=== PATIENT | male | born 1960 | race Hispanic/Latino ===

== ENCOUNTER 2019-03-04 09:56 | Emergency (ER) | payer BC ==
[2019-03-04 10:53] LABS: Protime INR 1.03
[2019-03-04 10:55] LABS: Absolute Lymphocytes (CBC) 2.6 K/uL (0.7-4.9); Basophils % 0.7 % (0-1.3); Hematocrit 43.3 % (39.6-49.0); Lymphocytes % 40.6 % (15.3-44.8); RBC Red Blood Cell Count 5.19 M/uL (4.33-5.43)
--- NOTE | 2019-03-04 11:00 | RAD REPORT ---
EXAM DESCRIPTION: CT - Head Brain Wo Cont - 03/04/2019 10:39 am CLINICAL HISTORY: Right-sided weakness, stroke-like symptoms COMPARISON: None. TECHNIQUE: Axial 5 mm thick images of the head were obtained without IV contrast. All CT scans are performed using dose optimization technique as appropriate and may include automated exposure control or mA/KV adjustment according to patient size. FINDINGS: No intracranial hemorrhage, mass, edema or shift of mid-line structures. No acute infarcti on changes seen. No significant atrophy or chronic ischemic change. Ventricles are normal. Arterial a nd physiologic calcifications are present. Mastoid air cells are clear. Maxillary sinus minimal mucosal thickening present. No acute bony findings. IMPRESSION: No acute intracranial finding. Mild maxillary sinus mucosal thickening.
[2019-03-04 11:13] LABS: ALT/SGPT 19 U/L (12-78); AST/SGOT 15 U/L (15-37); Albumin 4.3 g/dL (3.4-5.0); Alkaline Phosphatase 68 U/L (45-117); BUN Blood Urea Nitrogen 8 mg/dL (7-18); Bicarbonate 29 mmol/L (21-32); Bilirubin Direct 0.2 mg/dL (0-0.2); Bilirubin Total 1.1 mg/dL (0.2-1.0); Glucose Level 91 mg/dL (74-106); Magnesium 2.4 mg/dL (1.8-2.4); NT PRO-BNP 28 pg/mL (<125); Sodium Level 140 mmol/L (136-145); Troponin (Emerg Dept Use Only) < 0.02 ng/mL (0.0-0.045)
--- NOTE | 2019-03-04 11:28 | RAD REPORT ---
EXAM DESCRIPTION: Yesi Single View03/04/2019 10:54 am CLINICAL HISTORY: Chest pain COMPARISON: none FINDINGS: The lungs appear clear of acute infiltrate. The heart is normal size IMPRESSION: No acute abnormalities displayed
--- NOTE | 2019-03-04 11:40 | ER ---
Nurse's Notes [facility] Name: Romeo Chapin Age: 58 yrs Sex: Male : 1960 Arrival Date: 03/04/2019 Time: 10:02 Bed 23 Private MD: None, None Diagnosis: Tremor, unspecified Presentation: 03/04 10:05 Presenting complaint: Patient states: right side has been shaking X 2 weeks, getting iw worse, also having cramping on that side, his doctor was worried about a stroke. Transition of care: patient was not received from another setting of care. Onset of symptoms was February 20, 2019. Risk Assessment: Do you want to hurt yourself or someone else? Patient reports no desire to harm self or others. Initial Sepsis Screen: Does the patient meet any 2 criteria? No. Patient's initial sepsis screen is negative. Does the patient have a suspected source of infection? No. Patient's initial sepsis screen is negative. Care prior to arrival: None. 10:05 Method Of Arrival: Ambulatory iw 10:05 Acuity: LY 3 iw Historical: - Allergies: 10:06 No Known Allergies; iw - Home Meds: 10:06 None [Active]; iw - PMHx: 10:06 None; iw - PSHx: 10:06 eye; iw - Immunization history:: Adult Immunizations not up to date. - Social history:: Smoking status: Patient denies any tobacco usage or history of. - Ebola Screening: : Patient negative for fever greater than or equal to 101.5 degrees Fahrenheit, and additional compatible Ebola Virus Disease symptoms Patient denies exposure to infectious person Patient denies travel to an Ebola-affected area in the 21 days before illness onset No symptoms or risks identified at this time. Screenin:19 Abuse screen: Denies threats or abuse. Denies injuries from another. Nutritional ca1 screening: No deficits noted. Tuberculosis screening: No symptoms or risk factors identified. Fall Risk IV access (20 points). Assessment: 10:19 General: Appears in no apparent distress. comfortable, Behavior is calm, cooperative, ca1 appropriate for age, Reports shaking on the right side of the body, last week he feels numbness on the R side of mouth, sometimes, when his driving his right arm also feels numb. Shaking is more at rest than on purposeful movements and states, "I can control it most of the time but it just getting worse. Also, I kind of keep forgetting things". Pain: Denies pain. Neuro: Level of Consciousness is awake, alert, obeys commands, Oriented to person, place, time, situation, Appropriate for age Tool Crib Lead are equal bilaterally Moves all extremities. Gait is steady, Speech is normal, Facial symmetry appears normal, Pupils are PERRLA, Intact. Cardiovascular: Heart tones S1 S2 present Capillary refill < 3 seconds Patient's skin is warm and dry. Rhythm is sinus rhythm. Respiratory: Airway is patent Respiratory effort is even, unlabored, Respiratory pattern is regular, symmetrical, Breath sounds are clear bilaterally. GI: Abdomen is round non-distended, Bowel sounds present X 4 quads. Abd is soft and non tender X 4 quads. : No deficits noted. No signs and/or symptoms were reported regarding the genitourinary system. EENT: No signs and/or symptoms were reported regarding the EENT system. Derm: Skin is intact, is healthy with good turgor, Skin is pink, warm \\T\\ dry. Musculoskeletal: Circulation, motion, and sensation intact. Capillary refill < 3 seconds, Range of motion: intact in all extremities. 10:38 Reassessment: Pt to ct. ca1 11:08 Reassessment: Patient appears in no apparent distress at this time. Patient and/or ca1 family updated on plan of care and expected duration. Pain level reassessed. Patient is alert, oriented x 3, equal unlabored respirations, skin warm/dry/pink. 11:30 Reassessment: Patient appears in no apparent distress at this time. Patient is alert, ca1 oriented x 3, equal unlabored respirations, skin warm/dry/pink. Vital Signs: 10:06 BP 147 / 99; Pulse 68; Resp 16; Temp 97.8; Pulse Ox 98% on R/A; Weight 95.25 kg; Height iw 5 ft. 10 in. (177.80 cm); 11:08 BP 127 / 84; Pulse 65; Resp 15; Pulse Ox 99% on R/A; ca1 11:30 BP 133 / 97; Pulse 69; Resp 18 S; Pulse Ox 99% on R/A; ca1 10:06 Body Mass Index 30.13 (95.25 kg, 177.80 cm) iw ED Course: 10:02 Patient arrived in ED. mr 10:03 None, None is Private Physician. mr 10:06 Triage completed. iw 10:07 Blanka Cornejo, RN is Primary Nurse. ca1 10:16 Isacc Hernandez PA is PHCP. [facility] 10:16 Dangelo Grimm MD is Attending Physician. jmm 10:18 Arm band placed on. ca1 10:19 Patient has correct armband on for positive identification. Placed in gown. Bed in low ca1 position. Call light in reach. Side rails up X 1. phototypesetting equipment monitor on. Pulse ox on. NIBP on. Warm blanket given. 10:19 No provider procedures requiring assistance completed. ca1 10:35 Initial lab(s) drawn, by me, sent to lab. Inserted saline lock: 20 gauge in right ca1 antecubital area, using aseptic technique. Blood collected. 10:38 CT Head Brain wo Cont In Process Unspecified. EDMS 10:55 Chest Single View In Process Unspecified. EDMS 11:39 Marlon Temple MD is Referral Physician. jmm 11:40 IV discontinued, intact, bleeding controlled, No redness/swelling at site. Pressure ca1 dressing applied. Administered Medications: No medications were administered Outcome: 11:39 Discharge ordered by MD. jmm 11:40 Discharged to home ambulatory. ca1 11:40 Condition: stable 11:40 Discharge instructions given to patient, Instructed on discharge instructions, follow up and referral plans. Demonstrated understanding of instructions, follow-up care. 11:49 Patient left the ED. ca1 Signatures: Dispatcher [employer] EDMS Isacc Hernandez PA PA jmm Rivera, Mary Sun Hoff RN RN Blanka Cornejo RN RN ca1 Corrections: (The following items were deleted from the chart) 11:18 10:19 General: Appears in no apparent distress. comfortable, Behavior is calm, ca1 cooperative, appropriate for age, Reports shaking on the right side of the body, last week he feels numbness on the R side of mouth, sometimes, when his driving his right arm also feels numb. Shaking is more at rest than on purposeful movements and states, "I can control it most of the time but it just getting worse" ca1
--- NOTE | 2019-03-04 11:41 | EDPHYS ---
Physician Documentation [facility] Name: Romeo Chapin Age: 58 yrs Sex: Male : 1960 Arrival Date: 03/04/2019 Time: 10:02 Bed 23 Private MD: None, None ED Physician Dangelo Grimm HPI: 03/04 10:38 This 58 yrs old Male presents to ER via Ambulatory with complaints of Right jmm side shaking. 10:38 Onset: The symptoms/episode began/occurred gradually, 2 week(s) ago. Duration: The jmm episode is continuous. The symptoms are alleviated by nothing. The symptoms are aggravated by nothing. Associated signs and symptoms: Pertinent positives: palpitations, Pertinent negatives: chest pain. This is a 58 year old male with no chronic medical conditiosn that presents to the ED with complaints of shaking to his right leg which has been ongoing for the past 2 weeks. Patient states it affects his right side when he walks. Denies weakness. States having palpitations as well. . Historical: - Allergies: 10:06 No Known Allergies; iw - Home Meds: 10:06 None [Active]; iw - PMHx: 10:06 None; iw - PSHx: 10:06 eye; iw - Immunization history:: Adult Immunizations not up to date. - Social history:: Smoking status: Patient denies any tobacco usage or history of. - Ebola Screening: : Patient negative for fever greater than or equal to 101.5 degrees Fahrenheit, and additional compatible Ebola Virus Disease symptoms Patient denies exposure to infectious person Patient denies travel to an Ebola-affected area in the 21 days before illness onset No symptoms or risks identified at this time. ROS: 10:46 Constitutional: Negative for fever, chills, and weight loss, Cardiovascular: Negative jmm for chest pain, palpitations, and edema, Respiratory: Negative for shortness of breath, cough, wheezing, and pleuritic chest pain. 10:46 MS/extremity: Positive for 10:46 Neuro: Positive for tremor. 10:46 Psych: 10:46 All other systems are negative. Exam: 10:46 Constitutional: This is a well developed, well nourished patient who is awake, alert, jmm and in no acute distress. Head/Face: atraumatic. Eyes: EOMI, no conjunctival erythema appreciated ENT: Moist Mucus Membranes Neck: Trachea midline, Supple Chest/axilla: Normal chest wall appearance and motion. 10:46 Chest/axilla: Normal chest wall appearance and motion. Cardiovascular: Regular rate and rhythm. No edema appreciated Respiratory: Normal respirations, no respiratory distress appreciated Abdomen/GI: Non distended, soft Back: Normal ROM 10:46 Cardiovascular: Rate: normal, Rhythm: regular, Pulses: no pulse deficits are appreciated. 10:46 Respiratory: the patient does not display signs of respiratory distress, Respirations: normal, Breath sounds: are clear throughout. 10:46 Abdomen/GI: Inspection: abdomen appears normal, Bowel sounds: normal, Palpation: abdomen is soft and non-tender, in all quadrants. 10:46 Musculoskeletal/extremity: ROM: intact in all extremities. 10:46 Neuro: resting tremor noted. 10:46 Neuro: Orientation: is normal, Mentation: is normal, Memory: is normal, No pronator drift appreciated. 10:46 Psych: Behavior/mood is pleasant, cooperative. Vital Signs: 10:06 BP 147 / 99; Pulse 68; Resp 16; Temp 97.8; Pulse Ox 98% on R/A; Weight 95.25 kg; Height iw 5 ft. 10 in. (177.80 cm); 11:08 BP 127 / 84; Pulse 65; Resp 15; Pulse Ox 99% on R/A; ca1 11:30 BP 133 / 97; Pulse 69; Resp 18 S; Pulse Ox 99% on R/A; ca1 10:06 Body Mass Index 30.13 (95.25 kg, 177.80 cm) iw MDM: 10:25 Patient medically screened. [facility] 11:36 Data reviewed: vital signs, nurses notes. Counseling: I had a detailed discussion with chris the patient and/or guardian regarding: the historical points, exam findings, and any diagnostic results supporting the discharge/admit diagnosis, lab results, radiology results, to return to the emergency department if symptoms worsen or persist or if there are any questions or concerns that arise at home. ED course: I discussed the patient with Dr. Temple. Condition appears more likely tremor vs cva. CT negative. Will follow up with Dr. Temple for further evaluation. patient is otherwise given strict return precautions. Patient understood and agrees with the plan of care. . 03/04 10:23 Order name: Basic Metabolic Panel; Complete Time: 11:14 [facility] 03/04 10:23 Order name: CBC with Diff; Complete Time: 11:06 [facility] 03/04 10:23 Order name: LFT's; Complete Time: 11:14 [facility] 03/04 10:23 Order name: Magnesium; Complete Time: 11:14 [facility] 03/04 10:23 Order name: NT PRO-BNP; Complete Time: 11:14 [facility] 03/04 10:23 Order name: PT-INR; Complete Time: 11:07 [facility] 03/04 10:23 Order name: Troponin (emerg Dept Use Only); Complete Time: 11:14 [facility] 03/04 10:23 Order name: EKG; Complete Time: 10:27 [facility] 03/04 10:24 Order name: CT Head Brain wo Cont; Complete Time: 11:06 [facility] 03/04 10:45 Order name: Chest Single View; Complete Time: 11:32 [facility] 03/04 11:26 Order name: Urine Dipstick--Ancillary (enter results) 03/04 10:23 Order name: Cardiac monitoring; Complete Time: 10:38 [facility] 03/04 10:23 Order name: EKG - Nurse/Tech; Complete Time: 10:38 [facility] 03/04 10:23 Order name: IV Saline Lock; Complete Time: 10:38 [facility] 03/04 10:23 Order name: Labs collected and sent; Complete Time: 10:39 [facility] 03/04 10:23 Order name: O2 Per Protocol; Complete Time: 10:39 [facility] 03/04 10:24 Order name: O2 Sat Monitoring; Complete Time: 10:39 [facility] Administered Medications: No medications were administered Disposition: 16:45 Co-signature as Attending Physician, Dangelo Grimm MD. rn Disposition: 03/04/19 11:39 Discharged to Home. Impression: Tremor, unspecified. - Condition is Stable. - Discharge Instructions: Tremor, Dystonia. - Medication Reconciliation Form, Thank You Letter, Antibiotic Education, Prescription Opioid Use, Work release form form. - Follow up: Marlon Temple MD; When: 2 - 3 days; Reason: Recheck today's complaints, Continuance of care, Re-evaluation by your physician. Signatures: Dispatcher [employer] EDMS MicIsacc rocha PA PA jmm Williams, Irene, RN RN iw Dangelo Grimm MD MD rn Acob, MICHAEL Moscoso RN ca1 Corrections: (The following items were deleted from the chart) 10:46 10:27 Chest Single View+RAD.RAD.BRZ ordered. EDMS EDMS 11:18 11:07 Carotid Artery Bilateral+US.RAD.BRZ ordered. EDNH EDMS 11:49 11:39 03/04/2019 11:39 Discharged to Home. Impression: Tremor, unspecified. Condition ca1 is Stable. Forms are Medication Reconciliation Form, Thank You Letter, Antibiotic Education, Prescription Opioid Use. Follow up: Marlon Temple; When: 2 - 3 days; Reason: Recheck today's complaints, Continuance of care, Re-evaluation by your physician. chris
[2019-03-04] MEDS ORDERED: D5W 100 ML IV ONE (12:27)
[2019-03-04 12:38] LABS: Urine Blood NEGATIVE (NEG); Urine Glucose NEGATIVE (NEG); Urine Protein NEGATIVE (NEG); Urine Specific Gravity 1.015 (1.005-1.030)
--- NOTE | 2019-03-04 13:58 | EKG ---
Test Date: 2019-03-04 Test Time: 10:32:12 [employer] Salesperson: ANALIA MEASUREMENT RESULTS: Intervals: Rate: 65 TN: 156 QRSD: 92 QT: 404 QTc: 420 [place]: P: 27 TN: 156 QRS: 54 T: 21 INTERPRETIVE STATEMENTS: Normal sinus rhythm Normal ECG No previous ECG available for comparison Electronically Signed On 03-04-19 13:57:46 [employer] by Raheel Vaz
[2019-03-04 19:23] VITALS: TEMP 97.8
[2019-03-04 19:24] VITALS: BP 127/84; O2SAT 99
== END 2019-03-04 11:49 | disposition home or self-care (01) ==
LOC: ER 09:56
DX: R25.1 Tremor, unspecified (principal); R00.2 Palpitations
CPT/HCPCS: 36415; 70450; 71045; 80048; 80076; 81003; 83735; 83880; 84484; 85025; 85610; 93005; 99284